=== PATIENT | female | born 1990 | race Caucasian/White ===

== ENCOUNTER 2022-11-24 10:46 | Emergency (ER) | payer BC ==
[2022-11-24] MEDS ORDERED: Sodium Chloride 0.9% 2.5 ML Syringe FLUSH PRN (11:17)
[2022-11-24] MEDS ORDERED: Sodium Chloride 0.9% 10 ML Syringe FLUSH PRN (11:17)
[2022-11-24 11:46] LABS: BLOOD UREA NITROGEN,BUN 10 mg/dL (7.0-18.0); CARBON DIOXIDE,CO2 26.1 mmol/L (21.0-32.0); CHLORIDE,CL 101 mmol/L (98-107); GLUCOSE RANDOM 101 mg/dL (74-106); POTASSIUM,K 3.4 mmol/L (3.5-5.1); SODIUM,NA 141 mmol/L (136-145)
[2022-11-24 11:47] LABS: ESTIMATED GFR 119 mL/min (>60)
== END 2022-11-24 13:23 | disposition home or self-care (01) ==
LOC: MW.ED 10:46
DX: R42 Dizziness and giddiness (principal); Z88.0 Allergy status to penicillin; Z88.8 Allergy status to other drugs, medicaments and biological substances
CPT/HCPCS: 36415; 70450; 80053; 84443; 84484; 84703; 85025; 85610; 93005; 99285; J3490; 93010; 99283

== ENCOUNTER 2025-04-14 21:54 | Emergency (ER) | payer OTHER, BC | END 2025-04-14 22:46 | disposition home or self-care (01) | LOC: MW.ED 21:54 | DX: S13.4XXA Sprain of ligaments of cervical spine, initial encounter (principal); Z88.0 Allergy status to penicillin; V89.2XXA Person injured in unspecified motor-vehicle accident, traffic, initial encounter | CPT/HCPCS: 99283; A9270; 99282 ==